=== PATIENT | female | born 1980 | race Asian ===

== ENCOUNTER 2024-07-04 15:25 | Outpatient (CLI) | payer OTHER, SELFPAY ==
--- NOTE | ~2024-07-04 | MM_ITS ---
EXAMINATION: MM screening becca BI w josé HISTORY: Screening TECHNIQUE: Craniocaudal and mediolateral oblique 3-D tomosynthesis images were obtained and synthetic 2-D images were generated. CAD analysis was submitted and interpreted. COMPARISON: No prior mammogram is available for comparison at this institution. BREAST PARENCHYMAL COMPOSITION: Dense: The breasts are heterogeneously dense, which may obscure small masses FINDINGS: There is no evidence of suspicious mass, calcification, or architectural distortion to sugg est malignancy in either breast. There has been no suspicious interval change. IMPRESSION: 1. No mammographic evidence of malignancy. 2. Recommend routine screening mammography in one year. BI-RADS Category 1: Negative Reviewed, dictated and finalized at location A. SPORT INSTRUCTOR
--- OUTSIDE RECORDS SUMMARY | 2024-07-10 07:14 | XMS_ITS | Continuity of Care Document ---
Author Organization [facility] Address [address] [place] [address] Phone Care Team Providers Care Front Office Clerk Name Role Phone Unavailable Unavailable Unavailable Advance Directives Directive Yes / No Effective Date File Name No Information Encounters Encounter Description Practice Location Reason(s) For Visit Diagnoses Date Provider Providers Copied on Encounter [facility] , [address], [place], [place], [id number], tel:[phone] [place] No Information No Information Family History Family Member Type Diagnosis Age At Onset No Information Payers Payer name Insurance type Covered democrat ID Authoriza tion(s) No Information Social History Type Description Quantity Date Captured Comments Sex Female Smoking Status No Information Vital Signs Date / Time: Height Weight BMI Pulse Rate Blood Pressure Temperature Respiratory Rate Body Surface Area Head Circumference Head Circ. Percentile Wt./Trevon. Percentile BMI percentile Pulse Ox Inhaled Ox 12:16 PM 0.00 in 184.00 lbs 0.00 kg/m eter (2) 0 /min 110/70 mm[Hg] 98.80 F 0 /min 0.00 cm 0 % Chief Complaint And Reason For Visit No Information Reason For Referral Reason For Referral No Information History Of Present Illness Encounter Date Complaint History Of Prese nt Illness No Information Functional Status Date Functional Assessmen t No Information Instructions Date Instruction Additional Infor mation No Information Assessments Type Assessment Date No Information Patient Care Teams Name Effective Dates (start - stop) Status Members No Information
--- OUTSIDE RECORDS SUMMARY | 2024-07-10 07:14 | XMS_ITS | Encounter Summary ---
Author Organization [facility] Address [address] [place] [address] Care Team Providers Care Business Operations Coordinator Name Role Phone Mike Javier MD Primary Care Provider Encounter Details Date Type Department Care Team (Late st Contact Info) Description 12/29/2014 Lab Requisition [facility] [place] [address] [place] [id number] [facility], External Provider [address] [place] [address] Laboratory examination, unspecified Social History Tobacco Use Types Packs/Day Years Used Date Smoking Tobacco: Never Assessed Comments Unknown Sex and Gender Information Value Date Recorded Sex Assigned at Not on file Legal Sex Female 7:57 PM CDT Gender Identity Not on file Sexual Orientation Not on file documented as of this encounter Plan of Treatment Not on file documented as of this encounter Procedures Procedure Name Priority Date/Time Associated Diagnosis Comments D-DIMER Routine 12/29/2014 8:03 PM CDT Laboratory examination, unspecified [ICD-9-CM] documented in this encounter Results * D-DIMER (12/29/2014 8:03 PM CDT) D-DIMER QUANT 0.30 <0.41 ug/mL FEU 12/29/2014 8:19 PM CDT [facility] Comment: The DIC reference range is not clearly established in uncomplicated pregnancies. ??Values above the upper limit of the reference range are common from the 31st to 40th week of . ??High negative predictive values for DVT have been reported with the current methodology, as part of a comprehensive medical examination, including risk stratification. Various clinical studies utilizing this method have shown that a result of <0.5 mcg/ml FEU excludes deep vein thrombosis and pulmonary embolism with high sensitivity when used in conjunction with a non-high clinical pre-test probability assessment. Blood Venipuncture - Floor Collect / Unknown 12/29/2014 8:03 PM CDT 12/29/2014 8:02 PM CDT us External Provider [facility] HEMATOLOGY ORDERABLES Fi nal Result Performing Organization Address City/State/[facility] Co de Phone Number [facility]# [id number] [address] [place] [address] documented in this encounter Visit Diagnoses Diagnosis Laboratory examination, unspecified documented in this encounter Care Teams Business Operations Coordinator Relationship Specialty Start Date End Date Mike Javier MD [address] [place] [phone] PCP - General Internal Medicine 11/28/18 documented as of this encounter
--- OUTSIDE RECORDS SUMMARY | 2024-07-10 07:14 | XMS_ITS | Clinical Summary ---
Author Organization [facility] Address [address], [place] [address] Phone Care Team Providers Care Construction Ironworker Name Role Phone Unavailable Primary Care Provider Unavailabl e Allergies No known active allergies Medications Dulaglutide (Trulicity) 3 MG/0.5ML solution pen-injectorIndica tions:Type 2 diabetes mellitus without complication, with long-term current use of insulin (HCC) Inject 3 mg under the skin 1 (one) time per week. 2 mL 11 3 Active liraglutide (Victoza) 18 MG/3ML injection Inject 0.6 mg under the skin in the morning. For 7 days then increase to 1.2mg daily thereafter 9 mL 3 4 Active Insulin Pen Needle (TechLite Pen Comstock) 32G X 4 MM misc 1 each in the morning. 100 each 3 4 Active metFORMIN (Glucophage) 500 MG tabletIndications: Type 2 diabetes mellitus with other specified complication, unspecified whether jail insulin use (HCC) Take 1 tablet (500 mg) by mouth with breakfast and with evening meal. 180 tablet 3 4 025 Active atorvastatin (Lipitor) 10 MG tabletIndications: Other hyperlipidemia Take 1 tablet (10 mg) by mouth at bedtime. 30 tablet 11 4 Active Active Problems Problem Noted Date Diagnosed Date Sebaceous hyperplasia 07/17/2022 Overview (07/17/2022): 05/2020 biopsy Obstructive sleep apnea syndrome 03/29/2021 Overview (05/13/2022): Note: Home sleep apnea study 07/15/21 with supine RDI 7.9/hr, non-supine 4.5. Recommended to consider APAP or in-lab PAP. Carpal tunnel syndrome of left wrist 11/05/2020 Overview (05/13/2022): Note: 11/05/20 Dyslipidemia 02/19/2019 Family history of malignant neoplasm of breast 0 12/28/2017 Overview (05/13/2022): Note: mother had breast cancer age 60. mammogram 01/2018 normal Essential hypertension 09/14/2016 Overview (05/13/2022): Note: Unchanged - lisinopril caused nausea and vomiting. Assessment & Plan (05/29/2023 5:32 PM [facility]): Well controlled Migraine headache 03/23/2015 Sinus tachycardia 03/23/2015 Overview (05/13/2022): Note: improved with propranolol Type 2 diabetes mellitus 12/29/2014 Overview (05/13/2022): Note: invokana caused vaginal yeast infection and excessive urination. Assessment & Plan (05/29/2023 4:39 PM [facility]): Diabetes mellitus, type 2 Complicated by: none Current DM medications: metformin, trulicity 3 mg weekly Statin: atorvastatin BIB/ARB: none A1c: 6.6% on 05/29/23. 6.1% on 11/27/22 Urine Microalbumin: 07/17/22 normal Last foot exam: 11/27/22 Last eye exam: 09/2022 [facility] Last dental exam: [facility] q 6 months Pneumonia vaccine: ppsv Plan: Doing well on lower dose of metformin. Assessment & Plan (11/27/2022 5:15 PM CDT): Diabetes mellitus, type 2 Complicated by: none Current DM medications: metformin, trulicity 3 mg weekly Statin: atorvastatin BIB/ARB: none A1c: 6.1% on 11/27/22 Urine Microalbumin: 07/17/22 normal Last foot exam: 11/27/22 Last eye exam: 09/2022 [facility] Last dental exam: [facility] q 6 months Pneumonia vaccine: ppsv Plan: decrease dose of metformin Obesity 12/14/2014 Abnormal liver function 12/23/2013 Overview (05/13/2022): Note: CT abdomen/pelvis without contrast 09/15/16 in ER showed diffuse hepatic steatosis. 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 started on depo provera and progesterone taper EMB benign 09/05/2019. Failed Depo. Lupron given 11/24/2019 Noninflammatory disorder of cervix 05/02/2019 05/13/2022 Overview (05/13/2022): Note: 04/2019: ASCUS and + HPV. colpo results pending. s/p camacho by Dr. Chaidez Immunizations Name Administration Dates Next Due DTaP 01/19/1988, 6,05/18/1983,02/14,1982 HPV, Quadrivalent 12/30/2019,07/29/2019,05/26/20 19 Hep A, Adult 03/02/2006,08/30/2005 Hep A, ped/adol, 2 dose 03/02/2006 Hep B, adult 10/29/2015,06/28/2015,05/28/2015 Influenza, Unspecified 05/02/2017,2015,03/23/2015,04/02,04/02/2013,03/01/2012,12/15/2009 ,06/18/2009,05/03/2009,04/09/2009 Influenza, injectable, quadr ivalent, contains preservative 03/29/2021,03/09/2020,05/26/2019,04/01 Influenza, injectable, quadr ivalent, preservative free 05/29/2023 MMR 02/24/1993,10/24/1985 Novel [id number], all formulations 05/03/2009 OPV 01/19/1988, 6,05/18/1983,02/14,1982 Pfizer SARS-CoV-2 Vaccination 10/31/2020, 021,10/03/2020 Pneumococcal Polysaccharide PPSV23 05/28/2015 TD (adult), 2 Lf tetanus tox oid, preservative free, adsorbed 03/23/2015,06/18/2004 Family History Medical History Relation Name Comments suicide Father Diabetes type II Maternal Grandmother Breast cancer Mother Diabetes type II Paternal Grandmother Heart attack Paternal Grandmother Relation Name Status Comments Father Maternal Grandmother Mother Paternal Grandmother Social History Tobacco Use Types Packs/Day Years Used Date Smoking Tobacco: Never Smokeless Tobacco: Never Tobacco Cessation:Counseling Given: Not Answered Alcohol Use Standard Drinks/Week Comments Not Currently 0 (1 standard drink = 0.6 oz pur e alcohol) PHQ-9 Answer Date Recorded Patient Health Questionnaire-9 Score 0 09/21/2023 Intimate Partner Violence Answer Date R ecorded Feels physically and emotionally safe Not on fang e 03/19/2022 Fear of partner Not on file 03/19/2022 Housing Stability Answer Date Recorded Housing situation Not on file 03/19/2022 Worried about losing housing Not on file 07/2021 Comments Unknown Sex and Gender Information Value Date Recorded Sex Assigned at Not on file Legal Sex Female 3:26 PM EDT Gender Identity Female 03/19/2022 3:26 PM EDT Sexual Orientation Straight 03/19/2022 3: 26 PM EDT Last Filed Vital Signs Vital Sign Reading Time Taken Comments Blood Pressure 127/81 05/29/2023 3:52 PM [facility] Pulse 81 05/29/2023 3:52 PM [facility] Temperature 36.3 ??C (97.3 ??F) 05/29/2023 3:52 PM CS T Respiratory Rate - - Oxygen Saturation 100% 05/29/2023 3:52 PM [facility] Inhaled Oxygen Concentration - - Weight 89.9 kg (198 lb 3.2 oz) 05/29/2023 3:52 P M [facility] Height 162.6 cm (5' 4 ) 05/29/2023 3:52 PM [facility] Body Mass Index 34.02 05/29/2023 3:52 PM [facility] Plan of Treatment Health Maintenance Due Date Last Done Comments Diabetes: Preconception Counseling 1982 Diabetes: Dental Exam 1992 Diabetes: Retinopathy Screening 1992 Hepatitis C Screening 2000 Well Adult Exam (Age 18+ Annual Physical) 2000 Varicella Vaccines (1 of 2 - 13+ 2-dose series) 05/31/2009 DTaP/Tdap/Td Vaccines (5 - Tdap) 03/24/2015 03/23/2015, 06/18/2004, 01/19/1988, Additional history exists Pneumococcal Vaccine: 0-49 Years (2 of 2 - PCV) 05/28/2016 05/28/2015 Pap Smear 02/27/2022 02/27/2019 Mammogram 2022 01/25/2018, 01/25/2018 Dental Oral Exam 07/07/2023 01/03/2023, 02/2023, 12/13/2021, Additional history exists Dental Prophylaxis 07/07/2023 01/03/2023, 0 06/26/2022, 12/13/2021, Additional history exists Diabetes: Urine Protein Screening 07/17/2023 07/17/2022, 01/08/2020, 02/19/2019 Diabetes: Foot Exam 11/28/2023 11/27/2022, 11/27/2022, 11/27/2022, Additional history exists Diabetes: Hemoglobin A1C 11/28/2023 023, 11/27/2022, 07/17/2022, Additional history exists Dental X-Rays 01/04/2024 01/03/2023, 02/2023, 12/13/2021, Additional history exists COVID-19 Vaccine ( season) 2024 10/31/2020, 10/24/2020, 10/03/2020 Influenza Vaccine (#1) 2024 , 03/29/2021, 03/09/2020, Additional history exists Cervical Cancer Screening 02/28/2024 HPV/Cotest 02/28/2024 02/27/2019 Pano 12/03/2025 12/02/2020 Zoster Vaccines (1 of 2) 2032 IPV Vaccines Completed 01/19/1988, 12/16, 05/18/1983, Additional history exists MMR Vaccines Completed 02/24/1993, 10/24/1985 Hepatitis A Vaccines Aged Out 03/02/2006, 03/02/2006, 08/30/2005 No longer eligible based on patient's age to complete this topic Hepatitis B Vaccines Completed 10/29/2015, 06/28/2015, 05/28/2015 HIV Screening Completed 02/19/2019 Hepatitis B Screening Completed 02/19/2019 HPV Vaccines Completed 12/30/2019, 07/19, 05/26/2019 HIB Vaccines Aged Out No longer eligi ble based on patient's age to complete this topic Meningococcal B Vaccine Aged Out No l onger eligible based on patient's age to complete this topic Meningococcal Vaccine Aged Out No naveed john eligible based on patient's age to complete this topic Rotavirus Vaccines Aged Out No longer eligible based on patient's age to complete this topic Procedures Procedure Name Priority Date/Time Associated Diagnosis Comments POCT HEMOGLOBIN A1C Routine 05/29/2023 3 :58 PM [facility] Type 2 diabetes mellitus without complication, without long-term current use of insulin (HCC) PROPHYLAXIS - ADULT Routine 01/03/2023 3 :00 PM CDT Localized gingivitis on reduced periodontium in non-periodontitis patient BITEWINGS - 4 RADIOGRAPHIC IMAGES Routine 01/03/2023 2:00 PM CDT Encounter for dental examination and cleaning with abnormal findings PERIODIC ORAL EVALUATION - ESTABLISHED PATIENT Routine 01/03/2023 2:00 PM CDT Encounter for dental examination and cleaning with abnormal findings ALBUMIN/CREAT RATIO, RANDOM UR Routine 07/17/2022 10:49 AM [facility] Type 2 diabetes mellitus without complication, with long-term current use of insulin (HCC) PANORAMIC RADIOGRAPHIC IMAGE Routine 12/02/2020 6:36 PM CDT HPV RNA, HR E6/E7, TMA Routine 02/27/2019 1:35 PM CDT THINPREP TIS PAP Routine 02/27/2019 1:35 PM CDT HIV 1/2 ANTIGEN/ANTIBODY, FOURTH GENERATION W/RFL Routine 02/19/2019 5:18 PM CDT HEPATITIS B SURFACE ANTIGEN W/REFL CONFIRM Routine 02/19/2019 5:18 PM CDT from Last 3 Months or Most Recently Relevant to Health Maintenance Results * POCT HEMOGLOBIN A1C Manually Resulted (05/29/2023 3:58 PM [facility]) HEMOGLOBIN A1C 6.6 <5.7% % Blood Venous blood specimen / Unknown 05/29/2023 3:58 PM [facility] [employer] [facility] Mike Javier MD POINT OF CARE TEST ENTER/ED IT ORDERABLES Final Result * ALBUMIN/CREAT RATIO, RANDOM UR (07/17/2022 10:49 AM [facility]) CREATININE UR 76 20 - 275 mg/dL [facility] MICROALBUMIN UR 1.4 See Note: mg/dL [facility] Comment: Reference Range: Reference Range Not established ALB/CREAT RATIO 18 <30 mcg/mg creat [facility] Comment: The ADA defines abnormalities in albumin excretion as follows: Albuminuria Category ?Result (mcg/mg creatinine) Normal to Mildly increased ?? <30 Moderately increased ? 30-299 Severely increased ? > OR = 300 The ADA recommends that at least two of three specimens collected within a 3-6 month period be abnormal before considering a patient to be within a diagnostic category. Urine Urine specimen obtained by clean catch procedure / Unknown 07/17/2022 10:49 AM [facility] 07/17/2022 7:23 PM [facility] Mike Javier MD LAB URINE ORDERABLES Final Result Performing Organization Address [facility] Co de Phone Number [employer] [address] [place] [address], [place] * (ABNORMAL) HPV RNA, HR E6/E7, TMA (02/27/2019 1:35 PM CDT) HPV RNA, HR E6/E7, TMA Detected( A) Not Detected [facility] Comment:This test was perfor med using the APTIMA HPV Assay ([employer] This assay detects E6/E7 viral messenger RNA (mRNA) from 14 high-risk HPV types (16,18,31,33,35,39,45,51,52,56,58,59,66,68). The analytical performance characteristics of this assay have been determined by [employer]. The modifications have not been cleared or approved by the FDA. This assay has been validated pursuant to the CLIA regulations and is used for clinical purposes. 02/27/2019 1:35 PM CDT 02/27/2019 1:35 PM CDT us [facility] Conversion Provider LAB MICROBIOLOGY - G ENERAL ORDERABLES Final Result Performing Organization Address [facility] Co de Phone Number [facility] * (ABNORMAL) THINPREP TIS PAP (02/27/2019 1:35 PM CDT) LMP NONE GIVEN [facility] SOURCE [facility] Comment:Vagina, Cervix, Endo cervix PAP SMEAR (A) [facility] Comment:Atypical Squamous Ce lls of Undetermined Significance (ASC-US) PATHOLOGIST [facility] Comment:Roberto Mccann M.D. , Board Certified in Anatomic Pathology and Cytopathology. (electronic signature) CLINICAL INFORMATION None given [facility] PREV. BX NONE GIVEN [facility] GENERAL CATEGORIZATION (A) [facility] Comment:EPITHELIAL CELL ABNO RMALITY PREV. PAP NONE GIVEN [facility] [employer] SALES ENGINEER [facility] Comment:MMW, CT(ASCP) CT scr eening location: [place] [address] [place] [address] STATEMENT OF ADEQUACY [facility] Comment:Satisfactory for lopez luation. Endocervical/transformation zone component present. Age and/or menstrual status not provided COMMENT [facility] Comment:This Pap test has be en evaluated with computer assisted technology. Suggest clinical correlation and follow-up as clinically appropriate COMMENT [facility] Comment:EXPLANATORY NOTE: Th e Pap is a screening test for cervical cancer. It is not a diagnostic test and is subject to false negative and false positive results. It is most reliable when a satisfactory sample, regularly obtained, is submitted with relevant clinical findings and history, and when the Pap result is evaluated along with historic and current clinical information. 02/27/2019 1:35 PM CDT 02/27/2019 1:35 PM CDT [facility] MICROBIOLOGY - G ENERAL ORDERABLES Final Result [facility] * HIV 1/2 ANTIGEN/ANTIBODY, FOURTH GENERATION W/RFL (02/19/2019 5:18 PM CDT) HIV 1/2 AG/AB NON-REACT NICOLE NON-REACT NICOLE [facility] Comment:HIV-1 antigen and HI V-1/HIV-2 antibodies were not detected. There is no laboratory evidence of HIV infection. PLEASE NOTE: This information has been disclosed to you from records whose confidentiality may be protected by state law. If your state requires such protection, then the state law prohibits you from making any further disclosure of the information without the specific written consent of the person to whom it pertains, or as otherwise permitted by law. A general authorization for the release of medical or other information is NOT sufficient for this purpose. For additional information please refer to http://[email or web address].SlideMail/faq/RYR991 (This link is being provided for informational/ educational purposes only.) The performance of this assay has not been clinically validated in patients less than 2 years old. 02/19/2019 5:18 PM CDT 02/19/2019 5:18 PM CDT us Mike Javier MD LAB BLOOD ORDERABLES Final Result [facility] * HEPATITIS B SURFACE ANTIGEN W/REFL CONFIRM (02/19/2019 5:18 PM CDT) HEPATITIS B SURFACE AG NON-REACTI VE NON-REACTI VE [facility] 02/19/2019 5:18 PM CDT 02/19/2019 5:18 PM CDT us Mike Javier MD LAB BLOOD ORDERABLES Final Result [facility] from Last 3 Months or Most Recently Relevant to Health Maintenance
--- OUTSIDE RECORDS SUMMARY | 2024-07-10 07:14 | XMS_ITS | Clinical Summary ---
Author Organization [facility] Address [address] [facility] [place] [address] Care Team Providers Care Double Corner Cutter Name Role Phone Mike Javier MD Primary Care Provider [phone] Allergies No known active allergies Medications propranoloL (INDERAL) 40 mg tabletIndicatio ns:palpitations Take 40 mg by mouth 2 (two) times a day Active metFORMIN (GLUCOPHAGE) 500 mg tabletIndicatio ns:type 2 diabetes mellitus Take 1,000 mg by mouth 2 (two) times a day with meals Active liraglutide (VICTOZA) 0.6 mg/0.1 mL (18 mg/3 mL) injectionIndica tions:type 2 diabetes mellitus Inject 1.8 mg under the skin early childhood education instructor before breakfast Indications: type 2 diabetes mellitus Active atorvastatin (LIPITOR) 10 mg tabletIndicatio ns:hyperlipidem ia Take 10 mg by mouth nightly Active oxyCODONE (ROXICODONE) 5 mg immediate release tabletIndicatio ns:Pain Take 1 tablet (5 mg total) by mouth every 4 (four) hours as needed for pain 10 tablet 0 Active Active Problems Problem Noted Date Diagnosed Date Dizziness 03/05/2014 Ganglion of wrist 08/24/2009 05/31/2009 Surgical History Surgery Date Site/Laterality Comments SECTION TUBAL LIGATION Medical History Medical History Date Comments DM2 (diabetes mellitus, type 2) (HCC) Family History Medical History Relation Name Comments Anesthesia problems Neg Hx Heart disease Neg Hx Stroke Neg Hx Social History Tobacco Use Types Packs/Day Years Used Date Smoking Tobacco: Former Cigarettes 1 11 1 99 - 2008 Smokeless Tobacco: Never Alcohol Use Standard Drinks/Week Comments Yes 0 (1 standard drink = 0.6 oz pur e alcohol) social Comments No Sex and Gender Information Value Date Recorded Sex Assigned at Not on file Legal Sex Female 8:55 PM IT NETWORK ADMINISTRATOR Gender Identity Female 05/24/2020 2:48 AM IT NETWORK ADMINISTRATOR Sexual Orientation Straight 05/24/2020 2: 48 AM IT NETWORK ADMINISTRATOR Obstetrics History Para Term AB IAB SAB Ectopic Multiple Livin g Live Births 3 2 2 3 Date Outcome GA Total Labor Labor/2nd/3rd Weight Sex Type Anes PTL Elaine A1 A5 Name Clin 1998 Term F 2000 Term F C-S j incis Comments:breech presen tation Last Filed Vital Signs Vital Sign Reading Time Taken Comments Blood Pressure 142/87 05/26/2020 2:30 PM IT NETWORK ADMINISTRATOR Pulse 79 05/26/2020 2:30 PM IT NETWORK ADMINISTRATOR Temperature 36.5 ??C (97.7 ??F) 05/26/2020 2:00 PM CS T Respiratory Rate 18 05/26/2020 2:30 PM IT NETWORK ADMINISTRATOR Oxygen Saturation 95% 05/26/2020 2:30 PM IT NETWORK ADMINISTRATOR Inhaled Oxygen Concentration - - Weight 90 kg (198 lb 6.6 oz) 05/19/2020 8:03 AM IT NETWORK ADMINISTRATOR Height 162.6 cm (5' 4 ) 05/19/2020 8:03 AM IT NETWORK ADMINISTRATOR Body Mass Index 34.06 05/19/2020 8:03 AM IT NETWORK ADMINISTRATOR Plan of Treatment Not on file Insurance [facility] [employer] Care Teams Double Corner Cutter Relationship Specialty Start Date End Date Mike Javier MD [address] [place] [phone] PCP - General Internal Medicine 04/08/21
--- OUTSIDE RECORDS SUMMARY | 2024-07-10 07:14 | XMS_ITS | Data Portability ---
Author Organization [facility] ([facility] Address [address] [place] [address] Care Team Providers Care Expense Clerk Name Role Phone TATIANA CASTAÑEDA Primary Care Provider [phone] TATIANA CASTAÑEDA Referring Provider Assessment No assessment recorded. Plan of Treatment Reminders Order Date Submit Date Provider Last Modified By Organization Details Last Modified Time Details Appointments None record ed. Lab None record ed. Referral None record ed. Procedures None record ed. Surgeries None record ed. Imaging None record ed. Medication Orders None record ed. Patient TargetsNo targets recorded. Patient InstructionsNo instructions recorded. Reason for Referral None Reported. Procedures Surgical History Date Name Laterality Status Provider Name and Address Organization Details Recorded Time 07/15/2021 Sleep Study completed Tomasz Berrios [facility] 07/18/2021 14:11:29 Imaging Results None recorded. Procedure Notes None recorded. Medical Equipment None Reported. Medications Name Sig Start Date Stop Date Status Note LastModified by Organization Details LastModified Time cetirizine 10 mg tablet active Not Available Not Available No t Available atorvastatin 10 mg tablet active Not Available Not Available Not Available meloxicam 15 mg tablet active Not Available Not Available No t Available propranolol 40 mg tablet active Not Available Not Available No t Available metformin 1,000 mg tablet active Not Available Not Available Not Available fluticasone propionate 50 mcg/actuation nasal spray,suspensi on active Not Available Not Available Not Available Eye Itch Relief 0.025 % (0.035 %) drops active Not Available Not Available Not Available Victoza 3-Vinny 0.6 mg/0.1 mL (18 mg/3 mL) subcutaneous pen injector active Not Available Not Available Not Available Trulicity 0.75 mg/0.5 mL subcutaneous pen injector active Not Available Not Available Not Available TechLITE Pen Needle 32 gauge x active Not Available Not Availabl e Not Available Vitals Date Recorded Body height Body mass index (BMI) Body weight Provider Name and Address Organization Details Last Updated DateTime 07/15/2021 165.1 cm 33.4 kg/m2 46452.07 g Warren Herrera [place] - [facility] 07/15/2021 12:39:45 Social History None recorded. Functional Status None recorded. Mental Status None recorded. Family History Nothing Reported. Medical History No medical history recorded. Gynecological HistoryNo gynecological history recorded. Obstetrics History GPAL:G 0 P 0 0 0 0 Past Encounters Encounter ID Performer Location Encounter Start Date Encounter Closed Date Diagnosis/Indication Diagnosis SNOMED-CT Code Diagnosis ICD10 Code Diagnosis Note [id number] MD BATSHEVA Freitas, F.C.C.P. [id number] CSI [phone]) [id number] [facility] [address] [place] [address] 07/15/2021 12:28:20 07/18/2021 13:53:57 Obstructive sleep apnea of adult 9525136282 103 G47.33 Health Concerns Section Related Observation LastModified by Organization Detai ls LastModified Time None Recorded Concern Status LastModified by Organization Details LastModified Time None Recorded Advance Directives Directive None Recorded Payers Encounter Date Sequence Insurance Name Policy Number Policy Moreno Covered Member ID Moreno Member ID Guarantor Name 07/15/2021 1 [facility] (MEDICAID HMO) Abigail Godoy [id number] Abigail Godoy Notes Date Note Type Note Provider Name and Address Organization Details Recorded Time 07/15/2021 text/html HST SetupReporte d bypatient.HST set upDemonstrated to patient how to set up Home Sleep Test Device. The patient was able to return demonstration with out difficulty.; The patient is returning the device the following morning. MD BATSHEVA Freitas, F.C.C.P. [id number] [facility] [address], [place], [address], [facility] [place] [facility] 07/18/2021 14:23:33 OBGyn Episode No OBEpisode recorded.
--- OUTSIDE RECORDS SUMMARY | 2024-07-10 07:14 | XMS_ITS | Referral Summary ---
Author Organization [facility] Address [address] [place] [address] Care Team Providers Care Bicycle Repairman Name Role Phone Candy Lyons MD Primary Care Provider [phone] [facility],non-owned Affiliates and Associated Physician Practices is amultiple site organization consisting of ambulatory clinics and hospital sitesin [place], [place], [place] and [place]. This disclosure is being madepursuant to the Care Everywhere program and may not contain all information available regarding this patient. Last updated 18.[facility] Allergies No known active allergies Medications * Be aware that medications may not be up to date on this document. Alwaysverify current medications with the patient. Medication Sig Dispensed Refills Start Date End Date Status metFORMIN (GLUCOPHAGE) 1000 MG tablet Take 1,000 mg by mouth 2 times daily with morning and evening meal Active propranolol (INDERAL) 40 MG tablet Take 40 mg by mouth 2 times daily Active atorvastatin (LIPITOR) 10 MG tablet Take 10 mg by mouth at bedtime Active cetirizine (ZYRTEC) 10 MG tablet Take 10 mg by mouth once daily Active dulaglutide (TRULICITY) 0.75 MG/0.5ML injection Inject 0.75 mg subcutaneously every 7 days Active ibuprofen (MOTRIN) 600 MG tablet Take 1 (one) tablet by mouth every 6 hours as needed for Pain 60 tablet 1 11/21/2021 Active docusate sodium (COLACE) 100 MG capsule Take 1 (one) capsule by mouth 2 times daily 60 capsule 1 11/21/2021 Active oxyCODONE, immediate release, (ROXICODONE) 5 MG tablet Take 1 (one) tablet by mouth every 6 hours as needed for Pain 5 tablet 11/21/2021 Active Social History Tobacco Use Types Packs/Day Years Used Date Smoking Tobacco: Former Cigarettes 0.5 8 0 08/24/2000 - 08/24/2008 Smokeless Tobacco: Never Alcohol Use Standard Drinks/Week Comments Not Currently 0 (1 standard drink = 0.6 oz pure alcohol) first two weeks of pg. social Sex and Gender Information Value Date Recorded Sex Assigned at Female 10/27/2023 9:03 PM CDT Gender Identity Female 10/27/2023 9:03 PM CDT Sexual Orientation Straight 10/27/2023 9: 03 PM CDT Last Filed Vital Signs Vital Sign Reading Time Taken Comments Blood Pressure 111/69 11/21/2021 11:46 AM CDT Pulse 87 11/21/2021 11:46 AM CDT Temperature 36.4 ??C (97.5 ??F) 11/21/2021 11:04 AM C DT Respiratory Rate 18 11/21/2021 11:46 AM CDT Oxygen Saturation 94% 11/21/2021 11:46 AM CDT Inhaled Oxygen Concentration - - Weight 90.7 kg (200 lb) 11/21/2021 8:01 AM CDT Height 162.6 cm (5' 4 ) 11/21/2021 8:01 AM CDT Body Mass Index 34.33 11/21/2021 8:01 AM CDT Plan of Treatment Not on file Procedures Procedure Name Priority Date/Time Associated Diagnosis Comments MAMMO BILAT SCREENING Routine 01/25/2018 9:45 AM CDT Screening for breast cancer from Last 3 Months or Most Recently Relevant to Health Maintenance Results * MAMMO BILAT SCREENING (01/25/2018 9:45 AM CDT) Anatomical Region Laterality Modality Breast Bilateral Mammography 01/25/2018 12:1 2 PM CDT Narrative 01/25/2018 12:16 PM CDT EXAMINATION: Digital screening mammogram on 01/25/2018. Low-dose full-field digital breast tomosynthesis examination was performed with synthetic 2D images and 3D acquisitions. Computer assisted detection was utilized. PRIOR: This is the patient's baseline mammogram. ??No previous breast imaging studies are available for comparison. BREAST PARENCHYMAL DENSITY: There are scattered areas of fibroglandular density. FINDINGS: No suspicious masses, areas of architectural distortion or microcalcifications are evident on synthetic 2D mammogram or tomosynthesis images. IMPRESSION: No mammographic evidence of malignancy in either breast. ASSESSMENT: BIRADS Category 1: Negative mammogram. RECOMMENDATION: Screening mammography beginning at age 40. Thank you for allowing us to participate in the care of your patient. Mike Javier MD MAMMO ORDERABLES from Last 3 Months or Most Recently Relevant to Health Maintenance Advance Directives * Full Code (Latest Code Status on File) Date Activated Date Inactivated Comments 05/25/2009 11:00 AM 05/26/2009 12:57 AM * Full Code Date Activated Date Inactivated Comments 05/25/2009 10:20 AM 05/25/2009 11:00 AM Care Teams Bicycle Repairman Relationship Specialty Start Date End Date Candy Lyons MD [address] [address] PCP - General 11/28/21
--- OUTSIDE RECORDS SUMMARY | 2024-07-10 07:14 | XMS_ITS | Clinical Summary ---
Author Organization [facility] Address [address] [place] [address] Care Team Providers Care Inner Tube Tuber Machine Operator Name Role Phone Candy Lyons MD Primary Care Provider [phone] Source Comments [facility],non-owned Affiliates and Associated Physician Practices is amultiple site organization consisting of ambulatory clinics and hospital sitesin [place], [place], [place] and [place]. This disclosure is being madepursuant to the Care Everywhere program and may not contain all information available regarding this patient. Last updated 18.[employer] Allergies No known active allergies Medications * [...] needed for Pain 5 tablet 11/21/2021 Active Family History Medical History Relation Name Comments Cancer - Breast Mother Cancer - Breast Paternal Aunt Relation Name Status Comments Mother Paternal Aunt Social History Tobacco Use Types Packs/Day Years [...] 11/21/2021 8:01 AM CDT Plan of Treatment Health Maintenance Due Date Last Done Comments PAP SMEAR 1982 HIV SCREENING 1997 HEPATITIS C SCREENING 11/09/2000 DTAP/TDAP/TD VACCINES (1 - Tdap) 2001 HEPATITIS B VACCINE (1 of 3 - 19+ 3-dose series) 2001 MAMMOGRAM 01/26/2020 01/25/2018 COVID-19 VACCINE (3 - 2023-2 5 season) 2024 10/24/2020, 10/03/2020 INFLUENZA VACCINE (#1) 2024 7, 04/02/2014 DEPRESSION SCREENING 06/18/2024 ZOSTER VACCINE (1 of 2) 2032 HIB VACCINE Aged Out No longer eligi ble based on patient's age to complete this topic HPV VACCINE Aged Out No longer eligi ble based on patient's age to complete this topic MENINGOCOCCAL (Group B) VACCINE Aged Out No longer eligible b ased on patient's age to complete this topic MENINGOCOCCAL VACCINE Aged Out No naveed john eligible based on patient's age to complete this topic PNEUMOCOCCAL VACCINE Aged Out No long er eligible based on patient's age to complete [...] 10:20 AM 05/25/2009 11:00 AM Care Teams Inner Tube Tuber Machine Operator Relationship Specialty Start Date End Date Candy Lyons MD [address] [address] PCP - General 11/28/21
--- OUTSIDE RECORDS SUMMARY | 2024-07-10 07:14 | XMS_ITS | Clinical Summary ---
Author Organization [facility] Address [address] [place] [address] Phone Care Team Providers Care Blueprint Reader Name Role Phone Mike Javier MD Primary Care Provider [phone] Allergies No known active allergies Medications metformin HCl (METFORMIN ORAL) Take by mouth. Activ e liraglutide (VICTOZA 2-PELON SUBCUT) Inject by subcutaneous injection. Active propranolol (INDERAL) 40 mg tablet Take 40 mg by mouth 2 times daily. Active benzonatate (TESSALON) 200 mg capsule Take 1 Capsule (200 mg) by mouth 3 times daily. 30 Capsule 9 Active azithromycin (ZITHROMAX Z-PELON) 250 mg tablet Take 2 tablets by mouth the first day and 1 tablet days 2-5. 6 Tablet 9 Active Social History Tobacco Use Types Packs/Day Years Used Date Smoking Tobacco: Former Smokeless Tobacco: Never Alcohol Use Standard Drinks/Week Comments Yes 0 (1 standard drink = 0.6 oz pur e alcohol) Comments No Sex and Gender Information Value Date Recorded Sex Assigned at Not on file Legal Sex Female 7:57 PM CDT Gender Identity Not on file Sexual Orientation Not on file Last Filed Vital Signs Vital Sign Reading Time Taken Comments Blood Pressure 147/84 06/03/2019 5:52 PM APPEALS RN Pulse 96 06/03/2019 5:52 PM APPEALS RN Temperature 37.9 ??C (100.2 ??F) 06/03/2019 5:[address] Respiratory Rate 16 06/03/2019 5:52 PM APPEALS RN Oxygen Saturation 100% 06/03/2019 5:52 PM APPEALS RN Inhaled Oxygen Concentration - - Weight 92.1 kg (203 lb) 06/03/2019 5:52 PM APPEALS RN Height 162.6 cm (5' 4 ) 06/03/2019 5:52 PM APPEALS RN Body Mass Index 34.84 06/03/2019 5:52 PM APPEALS RN Plan of Treatment Health Maintenance Due Date Last Done Comments DTAP/TDAP/TD VACCINES (1 - Tdap) 2001 HEPATITIS B VACCINES (1 of 3 - 19+ 3-dose series) 2001 CERVICAL CANCER SCREENING 2012 BREAST CANCER SCREENING 2022 INFLUENZA VACCINE (#1) 2024 HPV VACCINES Aged Out No longer eligi ble based on patient's age to complete this topic PNEUMOCOCCAL VACCINE 0-64 YEARS Aged Out No longer eligible based on patient's age to complete this topic Insurance MEDICAID [place] Care Teams Blueprint Reader Relationship Specialty Start Date End Date Mike Javier MD [address] [place] [phone] PCP - General Internal Medicine 11/28/18
--- OUTSIDE RECORDS SUMMARY | 2024-07-10 07:14 | XMS_ITS | Patient Health Summary ---
Author Organization [facility] Address [address] [place] [address] Care Team Providers Care Ferry Engineer Name Role Phone Candy Lyons MD Primary Care Provider [phone] Note from [facility],non-owned Affiliates and Associated Physician Practices is amultiple site organization consisting of ambulatory clinics and hospital sitesin [place], [place] and [place]. This disclosure is being madepursuant to the Care Everywhere program and may not contain all information available regarding this patient. Last updated 18.[facility] Allergies No known active allergies Medications * Be aware that medications may not be up to date on this document. Alwaysverify current medications with the patient. * metFORMIN (GLUCOPHAGE) 1000 MG tablet Take 1,000 mg by mouth 2 times daily with morning and evening meal * propranolol (INDERAL) 40 MG tablet Take 40 mg by mouth 2 times daily * atorvastatin (LIPITOR) 10 MG tablet Take 10 mg by mouth at bedtime * cetirizine (ZYRTEC) 10 MG tablet Take 10 mg by mouth once daily * dulaglutide (TRULICITY) 0.75 MG/0.5ML injection Inject 0.75 mg subcutaneously every 7 days * ibuprofen (MOTRIN) 600 MG tablet(Started 11/21/2021) Take 1 (one) tablet by mouth every 6 hours as needed for Pain 1 refill by 11/21/2022 * docusate sodium (COLACE) 100 MG capsule(Started 11/21/2021) Take 1 (one) capsule by mouth 2 times daily 1 refill by 11/21/2022 * oxyCODONE, immediate release, (ROXICODONE) 5 MG tablet(Started 11/21/2021) Take 1 (one) tablet by mouth every 6 hours as needed for Pain Social History Tobacco Use Types Packs/Day Years [...] Mass Index 34.33 11/21/2021 8:01 AM CDT Procedures * CARDIAC RHYTHM STRIP ORDER(Performed 11/24/2021) * GLUCOSE - POINT OF CARE(Performed 11/21/2021) * PATHOLOGY TISSUE EXAM (STL)(Performed 11/21/2021) Performed for Diagnosis unknown * LARYNGEAL MASK AIRWAY(Performed 11/21/2021) * WI EXCIS VAGINAL CYST/TUMOR(Performed 11/21/2021) Performed for Diagnosis unknown * GLUCOSE - POINT OF CARE(Performed 11/21/2021) * MAMMO BILAT SCREENING(Performed 01/25/2018) Performed for Screening for breast cancer * IMAGING/RADIOLOGY/XRAY RESULTS ORDER(Performed 06/03/2009) * GLUCOSE PROTEIN KETONE URINE - POINT OF CAR(Performed 05/25/2009) Results * CARDIAC RHYTHM STRIP ORDER (11/24/2021 10:27 AM CDT) Narrative 11/24/2021 10:27 AM CDT Ordered by an unspecified provider. Scanned Document CARDIAC SERVICES ORD ERABLES * (ABNORMAL) GLUCOSE - POINT OF CARE (11/21/2021 10:08 AM CDT) Only the most recent of2 resultswithin the time period is included. Glucose WB/POC 160(H) 70 - 106 mg/dL 11/22/2021 7:37 AM CDT [facility] Specimen Type Cap Fingerstick 2021 7:37 AM CDT [facility] Blood BLOOD SPECIMEN / Unknown 11/21/2021 10:08 AM CDT 11/22/2021 7:37 AM CDT Dora Solis MD LAB - POINT OF CARE ORDERABLES Performing Organization Address [facility] Co de Phone Number [facility] [address] [place] [address] * PATHOLOGY TISSUE EXAM (STL) (11/21/2021 9:45 AM CDT) Pathologist [facility] Case Report Surgical Pathology Report ? Case: [id number] ? Authorizing Provider: ??Dora Solis MD ?Collected: ? 11/21/2021 09:45 AM ? Ordering Location: ? [facility] ? Received: ?11/21/2021 10:29 AM ? Pathologist: ? Radha Birch MD ? Specimen: ?Cyst, vulvar cyst wall ? 11/22/2021 9:47 AM [facility] Final Diagnosis Vulva, cyst wall, excision - Squamous mucosa with chronic inflammation and fibrosis 11/22/2021 9:47 AM [facility] Clinical History The patient is a 41-year-old woman. Operative procedure: drainage and removal of vulvar cyst. 11/22/2021 9:47 AM [facility] Gross Description The requisition and specimen are identified with patient's name and date of . Received in formalin, specimen A, vulvar cyst wall is a pink to purple-zendejas mucosal tissue, 1.4 x 1.6 cm, excised to a depth of 0.3 cm. The margin is inked green, the specimen is sectioned showing light-zendejas cut surfaces. [employer] sections are submitted in cassette A1. LJ 11/22/2021 9:47 AM [facility] Microscopic Description Microscopic examination substantiates the above diagnosis. 11/22/2021 9:47 AM [facility] Disclaimer All histochemical and/or immunohistochemical results are interpreted with controls that demonstrate appropriate staining reactions before reporting results. Note on use of immunocytochemistry reagents: This test was developed and its performance characteristic determined by [facility], Department of Laboratory Medicine. It has not been cleared or approved by the U.S. Food and Drug Administration (FDA). The FDA has determined that such clearance or approval is not necessary. The test is used for clinical purpose. It should not be regarded as investigational or for research. This laboratory is certified to perform high complexity testing. The performance characteristics of the IHC/OTONIEL assays have been validated on formalin-fixed paraffin embedded tissues only. The assays have not been validated on decalcified tissues. Results should be interpreted with caution. 11/22/2021 9:47 AM CDT [facility] Embedded Images 11/22/2021 9:47 AM CDT [facility] Pathology/Cytolo gy CYST TISSUE / Unknown 11/21/2021 9:45 AM CDT 11/21/2021 10:29 AM CDT Comment:Pre-op diagnosis: Diagnosis unknown [R69] Dora Solis MD LAB - PATHOLOGY/CYTO LOGY ORDERABLES [facility] [address] [place] [address] * LARYNGEAL MASK AIRWAY (11/21/2021 9:30 AM CDT) Narrative Allyson Winetrs APRN-CRNA - 11/21/2021 9:30 AM CDT Allyson Winters APRN-CRNA ? 11/21/2021 ??9:31 AM LMA Placement Procedure/LDA Note: Patient Location: OR. LMA Insertion Date/Time: ??11/21/2021 9:23 AM Procedure: LMA. Pretreatment: 100% O2 Induction: standard IV Mask Ventilation: easy Type: ??flexible Size: ??4 Number of Attempts: 1. Placement verified by: bilateral breath sounds, chest auscultation and CO2 monitor Dentition unchanged? ??Yes Procedure Start Time: 11/21/2021 9:23 AM. Staff Section ? Anesthesia Provider: Allyson Winters APRN-CRNA, Performed the procedure Keegan Martin MD GENERAL ANESTHESIA O RDERABLES * MAMMO BILAT SCREENING (01/25/2018 9:45 AM [...] your patient. Mike Javier MD MAMMO ORDERABLES * IMAGING/RADIOLOGY/XRAY RESULTS ORDER (06/03/2009 5:57 AM NURSE PRACTITIONER PHYSICIAN ASSISTANT) Anatomical Region Laterality Modality Other Narrative 06/03/2009 5:57 AM NURSE PRACTITIONER PHYSICIAN ASSISTANT Ordered by an unspecified provider. Transcriptions Document, Scanned - 05/25/2009 12:00 AM NURSE PRACTITIONER PHYSICIAN ASSISTANT Scanned Document IMAGING * GLUCOSE PROTEIN KETONE URINE - POINT OF CAR (05/25/2009 9:40 AM NURSE PRACTITIONER PHYSICIAN ASSISTANT) Glucose UA neg Negative [facility] Protein UA neg Negative [facility] Ketone UA neg Negative [facility] QC Verified yes Yes [facility] POC T TESTING Urine specimen (specimen) URINE / Unknown 05/25/2009 9:40 AM NURSE PRACTITIONER PHYSICIAN ASSISTANT Diane Sheppard RN LAB - POINT OF CARE ORDERABLES [place] [address] Care Teams Ferry Engineer Relationship Specialty Start Date End Date Candy Lyons MD [address] [address] PCP - General 11/28/21
--- OUTSIDE RECORDS SUMMARY | 2024-07-10 07:14 | XMS_ITS | Referral Summary ---
Author Organization [facility] Address [address] [place] [address] Care Team Providers Care Chairman & Chief Executive Officer Name Role Phone Mike Javier MD Primary Care Provider [phone] Allergies No known active allergies Medications propranoloL [...] mellitus Inject 1.8 mg under the skin pipe fittings molder before breakfast Indications: type 2 diabetes mellitus [...] Dizziness 03/05/2014 Ganglion of wrist 08/24/2009 05/31/2009 Social History Tobacco Use Types Packs/Day Years Used Date Smoking Tobacco: Former Cigarettes 1 11 1 2008 Smokeless Tobacco: Never Alcohol Use Standard Drinks/Week Comments Yes 0 (1 standard drink = 0.6 oz pur e alcohol) social Comments No Sex and Gender Information Value Date Recorded Sex Assigned at Not on file Legal Sex Female 8:55 PM FIRE FIGHTER Gender Identity Female 05/24/2020 2:48 AM FIRE FIGHTER Sexual Orientation Straight 05/24/2020 2: 48 AM FIRE FIGHTER Last Filed Vital Signs Vital Sign Reading Time Taken Comments Blood Pressure 142/87 05/26/2020 2:30 PM FIRE FIGHTER Pulse 79 05/26/2020 2:30 PM FIRE FIGHTER Temperature 36.5 ??C (97.7 ??F) 05/26/2020 2:00 PM CS T Respiratory Rate 18 05/26/2020 2:30 PM FIRE FIGHTER Oxygen Saturation 95% 05/26/2020 2:30 PM FIRE FIGHTER Inhaled Oxygen Concentration - - Weight 90 kg (198 lb 6.6 oz) 05/19/2020 8:03 AM FIRE FIGHTER Height 162.6 cm (5' 4 ) 05/19/2020 8:03 AM FIRE FIGHTER Body Mass Index 34.06 05/19/2020 8:03 AM FIRE FIGHTER Plan of Treatment Not on file Insurance [facility] Care Teams Chairman & Chief Executive Officer Relationship Specialty Start Date End Date Mike Javier MD [address] [place] [address] [phone] PCP - General Internal Medicine 04/08/21
== END 2024-07-04 15:26 | disposition home or self-care (01) ==
LOC: ANHIMG 15:30
PROVIDERS: PCP Physician Assistant; Visit Provider Physician Assistant
DX: Z12.31 Encounter for screening mammogram for malignant neoplasm of breast (principal)
CPT/HCPCS: 77063; 77067